=== PATIENT | male | born 1995 | race Caucasian/White ===

== ENCOUNTER 2017-08-19 20:40 | Emergency (ER) | payer OTHER ==
[2017-08-19 21:29] VITALS: BP 131/68; PULSE 106; RESP 18; TEMP 99.4; O2SAT 99
--- NOTE | 2017-08-19 22:01 | ED PDOC ---
HPI: General Adult Time Seen by Provider: 08/19/17 21:45 Chief Complaint (Nursing): Flu-like Symptoms Chief Complaint (Provider): flu like symptoms History Per: Patient Additional Complaint(s): 22-year-old male presents to emergency department with fever, chills, sore throat, cough and congestion that started 2 days ago. Patient also states yesterday he had nausea, vomiting and diarrhea but this has resolved. Today he is able to keep down liquids and solids. Patient denies recent travel or known sick contacts. Past Medical History Reviewed: Historical Data, Nursing Documentation, Vital Signs Vital Signs: Last Vital Signs Temp 99.4 F 08/19/17 21:23 Pulse 106 H 08/19/17 21:23 Resp 18 08/19/17 21:23 BP 131/68 08/19/17 21:23 Pulse Ox 99 08/19/17 23:11 - Medical History PMH: Asthma - Surgical History Surgical History: No Surg Hx - Family History Family History: States: No Known Family Hx - Living Arrangements Living Arrangements: With Friends/Others - Social History Current smoker - smoking cessation education provided: No Alcohol: None Drugs: Denies - Immunization History Hx Tetanus Toxoid Vaccination: Yes - Home Medications Home Medications: Ambulatory Orders Medication Instructions Recorded Cyclobenzaprine HCl [Flexeril] 10 mg PO TID PRN #15 tab 06/28/13 Naproxen [Naproxen Delayed-Release] 500 mg PO BID PRN #14 ect 06/28/13 Sulfamethoxazole/Trimethopri 1 tab PO BID #14 tab 03/29/14 [Bactrim Ds 800 mg-160 mg] Albuterol HFA [Ventolin HFA 90 2 puff IH [id number] #1 puff 07/14/14 mcg/actuation (8 g)] Cephalexin [Keflex] 500 mg PO QID #28 cap 07/14/14 Naproxen 375 mg PO Q8 PRN #21 tab 07/14/14 Sulfamethoxazole/Trimethopri 2 tab PO BID #28 tab 07/14/14 [Bactrim Ds 800 mg-160 mg] Cephalexin [Keflex] 500 mg PO BID #20 cap 04/27/15 Ciprofloxacin/Hydrocortisone 10 ml XX BID 7 Days molina 04/27/15 [Cipro Hc 0.2%-1% 10 ml] Ciprofloxacin/Dexamethasone 75 drop AU BID #1 bottle 04/29/15 [Ciprodex Otic] Albuterol HFA [Ventolin HFA 90 1 puff IH ASDIR #1 unit 08/19/17 mcg/actuation (8 g)] Benzonatate 200 mg PO TID PRN #20 capsule 08/19/17 Oseltamivir Phosphate [Tamiflu] 75 mg PO BID #10 capsule 08/19/17 - Allergies Allergies/Adverse Reactions: Allergies Allergy/AdvReac Type Severity Reaction Status Date / Time No Known Allergies Allergy Verified 08/19/17 21:23 Review of Systems ROS Statement: Except As Marked, All Systems Reviewed And Found Negative Constitutional: Positive for: Fever, Chills ENT: Positive for: Throat Pain, Throat Swelling Cardiovascular: Negative for: Chest Pain Respiratory: Positive for: Cough Gastrointestinal: Positive for: Nausea, Vomiting, Diarrhea, Other (yesterday, now resolved). Negative for: Abdominal Pain Genitourinary Male: Negative for: Dysuria Neurological: Positive for: Headache. Negative for: Dizziness Physical Exam - Reviewed Nursing Documentation Reviewed: Yes Vital Signs Reviewed: Yes - Physical Exam Appears: Positive for: Well, Non-toxic, No Acute Distress Skin: Negative for: Rash Eye Exam: Positive for: Normal appearance ENT: Positive for: Nasal Congestion, Pharyngeal Erythema, Tonsillar Swelling Cardiovascular/Chest: Positive for: Regular Rate, Rhythm Respiratory: Positive for: Normal Breath Sounds. Negative for: Wheezing, Respiratory Distress Gastrointestinal/Abdominal: Positive for: Soft. Negative for: Tenderness, Distended, Guarding Neurologic/Psych: Positive for: Alert, Oriented - ECG O2 Sat by Pulse Oximetry: 99 Pulse Ox Interpretation: Normal - Other Rad CXR X-Ray: Interpreted by Me, Viewed By Me X-Ray Interpretation: no infiltrate Medical Decision Making Medical Decision Makin22 year old with flu like symptoms. Patient is afebrile, well appearing, non- toxic appearing. Plan: Flu swab PO tylenol CXR Rapid strep and throat culture Flu is A positive. Patient given prescriptions for Tamiflu, Tessalon Perles and Ventolin inhaler. He was instructed to take NSAIDs for fever and body aches. Advise follow-up with primary doctor or clinic in 2-3 days. Disposition - Clinical Impression Clinical Impression: Influenza - Patient ED Disposition Is Patient to be Admitted: No Counseled Patient/Family Regarding: Studies Performed, Diagnosis, Need For Followup, Rx Given - Disposition Referrals: [facility] [place] [Outside] Disposition: Routine/Home Disposition Time: 23:16 Condition: STABLE Additional Instructions: Take prescription medications as directed. Take [id number] Tylenol every 4 hours alternating with [id number] Motrin every 6 hours for fever and body aches. Drink plenty of fluids and get plenty of rest. Follow-up with primary doctor or clinic in 2-3 days. Prescriptions: Albuterol HFA [Ventolin HFA 90 mcg/actuation (8 g)] 1 puff IH ASDIR #1 unit Benzonatate 200 mg PO TID PRN #20 capsule PRN Reason: Cough Oseltamivir Phosphate [Tamiflu] 75 mg PO BID #10 capsule Instructions: Influenza (ED) Forms: [facility] (Czech)
--- NOTE | 2017-08-20 08:26 | RAD ---
HISTORY: cough COMPARISON: No prior. TECHNIQUE: Chest PA and lateral FINDINGS: LUNGS: No active pulmonary disease. PLEURA: No significant pleural effusion identified. No pneumothorax apparent. CARDIOVASCULAR: Normal. OSSEOUS STRUCTURES: No significant abnormalities. VISUALIZED UPPER ABDOMEN: Normal. OTHER FINDINGS: None. IMPRESSION: No active disease.
== END 2017-08-19 23:26 | disposition home or self-care (01) ==
LOC: H.ER 20:40
DX: J11.1 Influenza due to unidentified influenza virus with other respiratory manifestations (principal); J45.909 Unspecified asthma, uncomplicated